=== PATIENT | female | born 1965 | race Caucasian/White ===

== ENCOUNTER 2018-12-20 22:13 | Emergency (ER) | payer OTHER ==
[~2018-12-20] VITALS: Ht 149.9 cm; Wt 68.0 kg
[2018-12-20 22:15] VITALS: BP 145/76
[2018-12-20 22:47] LABS: BASOPHILS # (AUTO) 0.1 K/uL (0.00-0.22); BASOPHILS % (AUTO) 1.1 % (0.0-2.0); EOSINOPHILS # (AUTO) 0.1 K/uL (0-0.4); EOSINOPHILS % (AUTO) 1.2 % (0.0-4.0); HEMATOCRIT 40.6 % (36-48); HEMOGLOBIN 13.6 g/dL (12.0-16.0); LYMPHOCYTES # (AUTO) 2.3 K/uL (2.5-16.5); LYMPHOCYTES % (AUTO) 25.4 % (20.5-51.1); MEAN CORPUSCULAR HEMOGLOBIN 27 pg (27-31); MEAN CORPUSCULAR HGB CONC 34 g/dL (33-37); MEAN CORPUSCULAR VOLUME 81.2 fL (80-94); MONOCYTES # (AUTO) 0.3 K/uL (0.8-1.0); MONOCYTES % (AUTO) 3.2 % (1.7-9.3); NEUTROPHILS # (AUTO) 6.4 K/uL (1.8-7.7); NEUTROPHILS % (AUTO) 69.1 % (42.2-75.2); PLATELET COUNT (AUTO) 308 K/uL (140-450); RED CELL DISTRIBUTION WIDTH 13.9 % (11.6-13.7); WHITE BLOOD COUNT (AUTO) 9.3 K/uL (4.8-10.8)
[2018-12-20 22:56] LABS: ANION GAP 9.6 (8-16); CARBON DIOXIDE 32.1 mmol/L (21-32); POTASSIUM 3.7 mmol/L (3.5-5.1)
[2018-12-20 23:02] LABS: ALBUMIN 3.7 g/dL (3.4-5.0); TOTAL BILIRUBIN 0.3 mg/dL (0.0-1.0)
[2018-12-21] MEDS ORDERED: ONDANSETRON 4 MG ODT PO ONE (01:55)
[2018-12-21] MEDS ORDERED: MECLIZINE 25 MG TAB PO ONE (02:30)
[2018-12-21] MEDS ORDERED: KETOROLAC 60 MG/2 ML VIAL IM ONE (02:30)
[2018-12-21] MEDS ORDERED: KETOROLAC 30 MG/ML VIAL ONE (02:54)
[2018-12-21 03:15] VITALS: BP 141/71
== END 2018-12-21 03:15 | disposition home or self-care (01) ==
LOC: MED 22:13
DX: R11.2 Nausea with vomiting, unspecified (principal); R10.13 Epigastric pain; H81.10 Benign paroxysmal vertigo, unspecified ear; I10 Essential (primary) hypertension; E11.9 Type 2 diabetes mellitus without complications
CPT/HCPCS: 36415; 80053; 81002; 81025; 83690; 85025; 96372; 99283; J1885; J8597; Q0162

== ENCOUNTER 2019-05-03 21:47 | Emergency (ER) | payer OTHER ==
[~2019-05-03] VITALS: Ht 154.9 cm; Wt 72.6 kg
[2019-05-03 21:50] VITALS: BP 128/72
[2019-05-03] MEDS ORDERED: IBUPROFEN 400 MG TAB PO ONE (22:00)
--- NOTE | 2019-05-03 22:25 | NUR ---
PT AMBULATED TO BED 09
--- NOTE | 2019-05-03 22:35 | NUR ---
53/F BIB SON C/O SOB, SORE THROAT, PRODUCTIVE COUGH, PLEURITIC CHEST PAIN, BACK PAIN , SINCE FRIDAY. SHE TOOK TYLENOL AT 1630HOURS PAIN WORSE AT THROAT 01/12 AGGRAVATED BY COUGH. STATES F/C. DENIES N/V. SATURATING 99% RA. HX- DM, HYPERCHOL
--- NOTE | 2019-05-03 22:38 | NUR ---
DR PINEDA EVALUATING PT AT BEDSIDE
[2019-05-03] MEDS ORDERED: KETOROLAC 60 MG/2 ML VIAL IM ONE (22:55)
--- NOTE | 2019-05-03 23:20 | NUR ---
ORAL TEMP 100.4 AT THIS TIME
--- NOTE | 2019-05-03 23:23 | NUR ---
Patient discharged with v/s stable. Written and verbal after care instructions given and explained. Patient alert, oriented and verbalized understanding of instructions. Ambulatory with steady gait. All questions addressed prior to discharge. ID band removed. Patient advised to follow up with PMD. Rx of TAMIFLU, PROMETHAZINE DM, AND MOTRIN given. Patient educated on indication of medication including possible reaction and side effects. Opportunity to ask questions provided and answered.
[2019-05-03 23:26] VITALS: BP 134/68
== END 2019-05-03 23:23 | disposition home or self-care (01) ==
LOC: MED 21:47
DX: J11.1 Influenza due to unidentified influenza virus with other respiratory manifestations (principal); E11.9 Type 2 diabetes mellitus without complications; I10 Essential (primary) hypertension; E78.00 Pure hypercholesterolemia, unspecified
CPT/HCPCS: 96372; 99283; J1885

== ENCOUNTER 2023-09-07 20:15 | Emergency (ER) | payer OTHER ==
[~2023-09-07] VITALS: Ht 149.9 cm; Wt 77.1 kg
[2023-09-07 20:17] VITALS: BP 145/75; PULSE 85; RESP 16; TEMP 97.6; O2SAT 94
[2023-09-07 20:50] VITALS: O2SAT 93
[2023-09-07 21:04] LABS: FLU A ANTIGEN negative (NEGATIVE); FLU B ANTIGEN NEGATIVE (NEGATIVE)
[2023-09-07] MEDS ORDERED: MUC600 PO (21:32)
[2023-09-07] MEDS ORDERED: AZIT250T4 PO (21:32)
[2023-09-07 21:54] VITALS: BP 132/70; PULSE 81; RESP 20; TEMP 97.6; O2SAT 95
== END 2023-09-07 21:54 | disposition home or self-care (01) ==
LOC: MED 20:15
DX: J40 Bronchitis, not specified as acute or chronic (principal); Z20.822 Contact with and (suspected) exposure to COVID-19; E11.9 Type 2 diabetes mellitus without complications; I10 Essential (primary) hypertension; Z79.899 Other long term (current) drug therapy; Z79.4 Long term (current) use of insulin
CPT/HCPCS: 71046; 87426; 87804; 93005; 99285; Q0092